=== PATIENT | female | born 2000 | race Caucasian/White ===

== ENCOUNTER 2018-11-11 17:00 | Inpatient (IN) | payer OTHER ==
[~2018-11-11] VITALS: Ht 175.3 cm; Wt 78.7 kg
[2018-11-11 18:20] VITALS: Ht 175.3 cm; Wt 78.7 kg
[2018-11-11 18:24] VITALS: BP 121/75; PULSE 99; RESP 18
[2018-11-11] MEDS ORDERED: OXYTOCIN 30 UNITS/LR 500 ML IV SCH ×2 (19:00→20:30)
[2018-11-11] MEDS ORDERED: MISOPROSTOL 200 MCG TAB PR PRN (19:00)
[2018-11-11] MEDS ORDERED: METHYLERGONOVINE 0.2 MG INJ IM PRN (19:00)
[2018-11-11] MEDS ORDERED: IBUPROFEN 600 MG TAB PO PRN (19:00)
[2018-11-11] MEDS ORDERED: BUTORPHANOL 2 MG INJ IV PRN (19:00)
[2018-11-11] MEDS ORDERED: CARBOPROST 250 MCG INJ IM PRN (19:00)
[2018-11-11] MEDS ORDERED: OXYTOCIN 30 UNITS/LR 500 ML IV PRN (19:00)
[2018-11-11] MEDS ORDERED: LIDOCAINE 1% (MPF) 30 ML INJ INJ PRN (19:00)
[2018-11-11] MEDS: LACTATED RINGER'S 1,000 ML IV SCH (20:06)
--- NOTE | 2018-11-11 21:07 | HP ---
Date/Time of Note Date/Time of Note DATE: 11/11/18 TIME: 21:05 OB - History Hx of Present Chief Complaint: induction of labor Estimated Due Date: November 06, 2018 : 2 Para: 0 Spontaneous : 1 Therapeutic : 0 Care: Good Care Obstetrical Complications: None Medical Complications: None Past Family/Social History * Past Medical, Surgical, Family and Obstetric Histories reviewed from chart. GBS Status: Negative OB Admission Exam Vital Signs Vital Signs Vital Signs Date Temp Pulse Resp B/P (MAP) Pulse Ox O2 O2 Flow FiO2 Time Delivery Rate 11/11/18 98.5 99 18 121/75 Room Air 18:24 (90) Physical Exam HEENT: WNL Heart: Rhythm Normal Lungs: Clear, Equal Abdomen: WNL Extremities: Normal Reflexes: Normal Cervical Dilatation: 1cm Effacement: 75% Station: -1 Membranes: Intact Heart Rate: 120's Accelerations: Accelerations Present Decelerations: No Decelerations Varibility: Moderate Last 72 hours Lab Results CBC & BMP 11/11/18 20:00 OB Assessment/Plan Reason for admission: induction of labor Plan: Induction Induction Method: per Pitocin Protocol JORDAN MAGUIRE MD November 11, 2018 21:07
[2018-11-12] MEDS: LACTATED RINGER'S 1,000 ML IV SCH ×4 (02:34→13:48)
--- NOTE | 2018-11-12 04:10 | PREAC ---
Date/Time of Note Date/Time of Note DATE: 11/12/18 TIME: 04:09 Anesthesia Eval and Record Evaluation Time Pre-Procedure Interview DATE: 11/12/18 TIME: 04:09 Age 18 Sex female NPO: Other (na ) Preoperative diagnosis induction of labor Planned procedure epidural Past Medical History Past Medical History: Includes Pulm: Asthma Surgery & Anesthesia Issues No known issue Meds Anticoagulation: No Beta Delbert within 24 hr: No Reason Beta Delbert not given: Pt. not on B-Delbert Current Medications Lactated Ringer's 1,000 ml @ 125 mls/hr Q8H IV Last administered on 11/12/18at 04:05; Admin Dose 125 MLS/HR; Start 11/11/18 at 18:52 Butorphanol Tartrate (Stadol) 2 mg Q2H PRN IV .PAIN SCALE 6-10; Start 11/11/18 at 19:00 Lidocaine (Xylocaine 1% (Mpf)) 30 ml ONCE PRN INJ .EPISIOTOMY; Start 11/11/18 at 19:00 Oxytocin/Lactated Ringer's 500 ml @ 500 mls/hr ONCE POST IV ; Start 11/11/18 at 19:00 Oxytocin/Lactated Ringer's 500 ml @ 125 mls/hr POST IV ; Start 11/11/18 at 19:00 Ibuprofen (Motrin) 600 mg ONCE PRN PO .PAIN 1-5; Start 11/11/18 at 19:00 Oxytocin/Lactated Ringer's 500 ml @ 0 mls/hr ONCE PRN IV .VAGINAL BLEEDING; Start 11/11/18 at 19:00 Methylergonovine Maleate (Methergine) 0.2 mg ONCE PRN IM .VAGINAL BLEEDING; Start 11/11/18 at 19:00 Carboprost Tromethamine (Hemabate) 250 mcg ONCE PRN IM .VAGINAL BLEEDING; Start 11/11/18 at 19:00 Misoprostol (Cytotec) 1,000 mcg ONCE PRN ID .VAGINAL BLEEDING; Start 11/11/18 at 19:00 Oxytocin/Lactated Ringer's 500 ml @ 0 mls/hr FOR AUGMENTATION IV Last administered on 11/11/18at 21:03; Admin Dose 1 MLS/HR; Start 11/11/18 at 20:30 Meds reviewed: Yes Allergies Coded Allergies: No Known Allergy (Unverified , 11/11/18) Allergies Reviewed: Yes Labs/Studies Labs Reviewed: Reviewed by anesthesiologist Result Diagram: 11/11/181999 Laboratory Tests 11/11/18 20:00 Blood Bank Test 11/11/18 20:00 Antibody Identification Completed Antibody Screen POSITIVE Blood Type B NEGATIVE test: N/A Pre-procedure Exam Last vitals Vital Signs Date Temp Pulse Resp B/P (MAP) Pulse Ox O2 O2 Flow FiO2 Time Delivery Rate 11/11/18 98.5 99 18 121/75 Room Air 18:24 (90) Airway: Adequate mouth opening, Adequate thyromental dist Mallampati: Mallampati III Teeth: Normal Lung: Normal Heart: Normal ASA Physical Status ASA physical status: 2 Emergency: None Pre-operative Attestations Prior to commencing anesthesia and surgery, the patient was re-evaluated, there was verification of: *The patient's identity *The results of appropriate recent lab work and preoperative vital signs *The above evaluation not changing prior to induction *Anesthetic plan, risk benefits, alternative and complications discussed with patient/family; questions answered; patient/family understands, accepts and wishes to proceed. LOUIS SHAVER DO November 12, 2018 04:10
[2018-11-12] MEDS ORDERED: FENTAnyl 2MCG/ML-ROPIV 0.2% 100 ML ONE (04:13)
[2018-11-12] MEDS ORDERED: FENTAnyl 50 MCG/ML VIAL ONE (04:13)
[2018-11-12] MEDS ORDERED: NALOXONE (0.4 MG/ML) INJ IV PRN (04:30)
[2018-11-12] MEDS: FENTAnyl 2MCG/ML-ROPIV 0.2% 100 ML BAG EPI SCH ×2 (05:02→09:43)
[2018-11-12] MEDS ORDERED: MINERAL OIL LIGHT 10 ML VIAL TOP SCH (08:00)
[2018-11-12] MEDS ORDERED: ONDANSETRON 4 MG INJ IV STA (10:07)
--- NOTE | 2018-11-12 14:27 | PAC ---
Date/Time of Note Date/Time of Note DATE: 11/12/18 TIME: 14:26 Post-Anesthesia Notes Post-Anesthesia Note Last documented vital signs Vital Signs Date Temp Pulse Resp B/P (MAP) Pulse Ox O2 O2 Flow FiO2 Time Delivery Rate 11/12/18 98 85 18 190/62 Room Air 0700 Activity: WNL Respiratory function: WNL Cardiovascular function: WNL Mental status: Baseline Pain reasonably controlled: Yes Hydration appropriate: Yes Nausea/Vomiting absent: Yes LOUIS SHAVER DO November 12, 2018 14:27
[2018-11-12] MEDS ORDERED: LACTATED RINGER'S 1,000 ML IV* SCH (15:02)
[2018-11-12] MEDS ORDERED: MISOPROSTOL 200 MCG TAB PO STA (15:25)
[2018-11-12] MEDS ORDERED: ONDANSETRON 4 MG TAB PO PRN (15:30)
[2018-11-12] MEDS ORDERED: HYDROCODONE/APAP (5/325) TAB PO PRN ×2 (15:30)
[2018-11-12] MEDS ORDERED: DIPHENHYDRAMINE 50 MG INJ IV PRN (15:30)
[2018-11-12] MEDS ORDERED: MAGNESIUM HYDROXIDE 30ML CUP PO PRN (15:30)
[2018-11-12] MEDS ORDERED: ONDANSETRON 4 MG INJ IV PRN (15:30)
[2018-11-12] MEDS ORDERED: DIPHENHYDRAMINE 25 MG CAP PO PRN (15:30)
[2018-11-12] MEDS ORDERED: CARBOPROST 250 MCG INJ IM PRN (15:30)
[2018-11-12] MEDS ORDERED: SENNA/DOCUSATE NA (8.6MG/50MG) TAB PO PRN (15:30)
[2018-11-12] MEDS ORDERED: DIBUCAINE 1% 30 GM OINT TOP PRN (15:30)
[2018-11-12] MEDS ORDERED: BENZOCAINE 20% 56 ML SPRAY TOP PRN (15:30)
[2018-11-12] MEDS ORDERED: OXYTOCIN 30 UNITS/LR 500 ML IV PRN (15:30)
[2018-11-12] MEDS ORDERED: NA PHOSPHATE/BIPHOS 133 ML ENEMA PR PRN (15:30)
[2018-11-12] MEDS: OXYTOCIN 30 UNITS/LR 500 ML IV SCH ×2 (15:30→20:16)
[2018-11-12] MEDS ORDERED: WITCH HAZEL/GLYCERIN PAD PR PRN (15:30)
[2018-11-12] MEDS ORDERED: MISOPROSTOL 200 MCG TAB PR PRN (15:30)
--- NOTE | 2018-11-12 15:37 | LDN ---
Date/Time of Note Date/Time of Note DATE: 11/12/18 TIME: 15:30 Delivery Summary s/p of viable male infant. After delivery of the head, I noticed 2 tight nuchal cords and meconium. Cord was clamped and cut. the rest of the body delivered easily. I did not apply excessive traction. Placenta delivered spontaneously, but was not intact. Piece of membranes missing. I explored the uterus and removed the retained membranes. EBL 300 ml Placenta Delivered: Manually Meconium: Thick Episiotomy: No Perineal laceration: 1 Laceration repair: repaired with 2-0 Chromic Anesthesia type: Epidural Estimated blood loss: 300 Sponge & Needle done & correct: Yes All needle counts correct: Yes Any foreign bodies felt in the: No Delivery Information Sex Sex: male Apgars 1 Minute: 7 5 Minute: 9 Suctioning Nose & mouth suctioned at javier: No Delee suction performed: No Umbilical Cord Umbilical cord with: 3 Vessels Cord presentations: nuchal cord Nuchal cord present X: 2 Cord Blood was obtained: Yes Mother & Baby Disposition Disposition Mom & Baby to Maternity; Good: Yes VIDHYA VELEZ MD November 12, 2018 15:37
[2018-11-12] MEDS: IBUPROFEN 600 MG TAB PO SCH (18:00)
[2018-11-12 19:45] VITALS: BP 119/59; PULSE 86; RESP 18
[2018-11-12] MEDS: LANOLIN HPA 1 PKT TOP PRN (20:18)
[2018-11-12] MEDS: SENNA/DOCUSATE NA (8.6MG/50MG) TAB PO SCH (22:13)
[2018-11-13] VITALS: BP 107/58; PULSE 88; RESP 18
[2018-11-13 04:00] VITALS: BP 104/60; PULSE 77; RESP 18
[2018-11-13] MEDS: IBUPROFEN 600 MG TAB PO SCH ×4 (06:46→17:33)
[2018-11-13 08:32] VITALS: BP 100/71; PULSE 77; RESP 14
--- NOTE | 2018-11-13 08:50 | DS ---
Date/Time of Note Date/Time of Note DATE: 11/13/18 TIME: 08:49 Obstetrical Discharge Record Final Diagnosis Final Diagnosis: Term delivered Other Final Diagnosis she had one time fever after , which was most probably due to oral Cytotec. she reports mild lochia. Denies depression. BF OK Vaginal Delivery Obstetrical Delivery: Spontaneous Complications Augmentation: Yes Induction: Yes Rupture of Membranes: No Condition on Discharge Physical Assessment Voiding: Yes Bowel Movement: Yes Breast: Soft, non-tender, Filling Fundus: Firm Abdomen and Incision: soft, not tender Calf Tenderness: No Patient Condition: Good VIDHYA VELEZ MD November 13, 2018 08:50
[2018-11-13] MEDS: SENNA/DOCUSATE NA (8.6MG/50MG) TAB PO SCH ×2 (08:59→22:00)
[2018-11-13 16:51] VITALS: BP 100/61; PULSE 72; RESP 16
[2018-11-13 20:30] VITALS: BP 97/56; PULSE 73; RESP 18
[2018-11-14] MEDS: IBUPROFEN 600 MG TAB PO SCH ×2 (00:15→05:40)
[2018-11-14] MEDS: LANOLIN HPA 1 PKT TOP PRN (00:54)
[2018-11-14 04:10] VITALS: BP 86/46; PULSE 59; RESP 20
[2018-11-14 08:57] VITALS: BP 107/67; PULSE 67; RESP 16
[2018-11-14] MEDS ORDERED: DIPHTH/TET/ACEL PERTUSS (ADULT) 0.5 ML VIAL IM* ONE (09:00)
[2018-11-14] MEDS ORDERED: MEASLES,MUMPS,RUBELLA VACCINE INJ SC* ONE (09:00)
[2018-11-14] MEDS ORDERED: VARICELLA VACCINE LIVE/PF 1,350 UNIT/0.5 ML ML SC* ONE (09:00)
[2018-11-14] MEDS: SENNA/DOCUSATE NA (8.6MG/50MG) TAB PO SCH (10:53)
--- NOTE | 2018-11-15 13:21 | DELSUM ---
Delivery Summary A-C Datetime Report Generated by CPN: 11/15/2018 13:21 DELIVERY PERSONNEL Freight Adjuster: Kevin, Coni MATERNAL INFORMATION Delivery Anesthesia: Epidural Medications in Delivery: LR with 30 Units Pitocin Delivery QBL (ml): 300 Placenta Cultured: No Maternal Complications: None LABOR SUMMARY EDC: 11/06/2018 00:00 No. Babies in Womb: 1 Attempted: No Labor Anesthesia: Epidural LABOR INFORMATION Reason for Induction: Not Applicable Onset of Labor: 11/11/2018 18:00 Complete Dilatation: 11/12/2018 13:14 Oxytocin: Augmentation Group B Beta Strep: Negative Antibiotics # of Doses: 0 Steroids Given: None Reason Steroids Not Administered: Not Applicable MEMBRANES Membranes Rupture Method: Artificial Rupture of Membranes: 11/12/2018 14:21 Length of Rupture (hr): 0.90 Amniotic Fluid Color: Heavy Meconium (Annotations: Clear fluid at AROM. Heavy Meconium at delivery) Amniotic Fluid Amount: Moderate Amniotic Fluid Odor: None STAGES OF LABOR Stage 1 hr: 19 Stage 1 min: 14 Stage 2 hr: 2 Stage 2 min: 1 Stage 3 hr: 0 Stage 3 min: 2 Total Time in Labor hr: 21 Total Time in Labor min: 17 VAGINAL DELIVERY Episiotomy: None Laceration Extension: First Degree Laceration Type: Vaginal Laceration Repair: Yes Initial Vag Sponge Count: 10 Final Vag Sponge Count: 10 Initial Vag Sharps Count: 1 Final Vag Sharps Count: 2 Sponge Count Correct: Yes Sharps Count Correct: Yes BABY A INFORMATION Infant Delivery Date/Time: 11/12/2018 15:15 Method of Delivery: Vaginal Born in Route : No : N/A Forceps: N/A Vacuum Extraction: N/A Shoulder Dystocia : N/A SHOULDER DYSTOCIA BABY A Infant Delivery Date/Time: 11/12/2018 15:15 PRESENTATION/POSITION BABY A Presentation: Cephalic Cephalic Presentation: Vertex Vertex Position: Left Occipital Posterior Breech Presentation: N/A PLACENTA INFORMATION BABY A Placenta Delivery Time : 11/12/2018 15:17 Placenta Method of Delivery: Spontaneous Placenta Status: Delivered SCORES BABY A Heart Rate 1 min: >100 bpm Resp Effort 1 min: Good Cry Reflex Irritability 1 min: Cough/Sneeze/Pulls Away Muscle Tone 1 min: Active Motion Color 1 min: Blue/Pale Resuscitation Effort 1 min: Tactile Stimulation SCORE 1 MIN: 8 Heart Rate 5 min: >100 bpm Resp Effort 5 min: Good Cry Reflex Irritability 5 min: Cough/Sneeze/Pulls Away Muscle Tone 5 min: Active Motion Color 5 min: Body [place], Extremit Blue Resuscitation Effort 5 min: Tactile Stimulation SCORE 5 MIN: 9 INFANT INFORMATION BABY A Gestational Age at Delivery: 40.6 Gestational Status: Full Term- 39- 40.6 Weeks Outcome : Liveborn Infant Condition : Stable Sex: Female IDENTIFICATION/MEDS BABY A ID Band Number: [id number] ID Band Location: Right Leg; Left Arm Sensor Applied: Yes Sensor Number: [id number] Sensor Location : Cord Clamp Vitamin K Given : Not Given Erythromycin Given: Not Given WEIGHT/LENGTH BABY A Birthweight (gm): 3745 Weight (lb): 8 Weight (oz): 4 Infant Length (in): 21.50 Length (cm): 54.61 CORD INFORMATION BABY A No. Cord Vessels: 3 Nuchal Cord : Around Neck x2, Tight Cord Blood Taken: Yes Suction: Mouth; Nose ASSESSMENT BABY A Infant Complications: Meconium Physical Findings at Delivery: Within Normal Limits Infant Respirations: Appears Normal Informatics Application Analyst/ALS Called : No Infant Care By: Nuria SHETTY/Salomon RT Transferred To: Remains with Mother
== END 2018-11-14 12:15 | disposition home or self-care (01) | DRG 807 ==
LOC: L-D 17:55 → PP1 11-12 18:55
PROVIDERS: ADMIT Specialist; ATTEND Specialist
PROC: 10E0XZZ Delivery of Products of Conception, External Approach (ICD-10-PCS; principal; 2018-11-12)
PROC: 0HQ9XZZ Repair Perineum Skin, External Approach (ICD-10-PCS; 2018-11-12)
DX: O48.0 Post-term pregnancy (principal); Z37.0 Single live birth; O70.0 First degree perineal laceration during delivery; Z3A.40 40 weeks gestation of pregnancy
CPT/HCPCS: 36415; 62322; 76815; 82803; 85025; 85610; 85730; 86592; 86850; 86870; 86885; 86900; 86901; 87340; 90716; J2405; J2590; J2790; J3010; J7120